=== PATIENT | female | born 1970 | race Hispanic/Latino ===

== ENCOUNTER 2018-06-24 09:08 | Outpatient (CLI) | payer OTHER ==
--- NOTE | 2018-06-24 14:59 | RAD ---
LUMBAR SPINE TWO VIEWS: History: Low back pain. FINDINGS: The lumbar vertebrae maintain normal height and alignment. Disc spaces are preserved. Minimal osteoph ytes. Mild facet hypertrophy at L4-5 and L5-S1. No significant listhesis is seen. IMPRESSION: There are mild degenerative changes with prominent facet hypertrophy at L5-S1. POS: [facility]
== END 2018-06-24 09:09 | disposition home or self-care (01) ==
LOC: BICRAD 09:08
PROVIDERS: ATTEND Family Medicine
DX: M54.5 Low back pain (principal); M47.897 Other spondylosis, lumbosacral region
CPT/HCPCS: 72100